=== PATIENT | female | born 1960 | race Caucasian/White ===

== ENCOUNTER 2021-04-29 01:50 | Emergency (ER) | payer BC ==
[~2021-04-29] VITALS: Ht 162.6 cm; Wt 98.0 kg
--- NOTE | 2021-04-29 03:58 | RAD ---
XR CHEST 1V INDICATION: Reason: epigastric pain / Spl. Instructions: / History: . COMPARISON STUDY: None. FINDINGS: Lungs: Normal lung volume. No pulmonary mass or consolidation. The tracheobronchial tree and hilar st ructures are normal. Pleura: No pleural effusion or pneumothorax. Heart and Mediastinum: The cardiomediastinal silhouette is normal. The great vessels of the thorax ar e normal. Bones and Soft Tissues: The bones and soft tissues are within normal limits. IMPRESSION: No acute cardiopulmonary process. Electronically signed by: Julio Huffman MD (04/29/2021 3:56 AM) [facility]
[2021-04-29 04:17] LABS: BASO # 0.1 x10^3/uL (0.0-0.2); BASO % 1 % (0-3); EOS # 0.3 x10^3/uL (0.0-0.7); EOS % 3 % (0-3); HEMOGLOBIN 14.3 g/dL (12.0-15.5); LYMPH # 2.8 x10^3/uL (1.0-4.8); LYMPH % 28 % (24-48); MEAN CORPUSCULAR HEMOGLOBIN 31 pg (25-35); MEAN CORPUSCULAR HGB CONC 34 g/dL (31-37); MEAN CORPUSCULAR VOLUME 92 fL (79-100); MONO # 1.6 x10^3/uL (0.0-1.1); MONO % 16 % (0-9); NEUT % 52 % (31-73); PLATELET COUNT 298 x10^3/uL (140-400); RED BLOOD COUNT 4.55 x10^6/uL (3.50-5.40); RED CELL DISTRIBUTION WIDTH 13.8 % (11.5-14.5); WHITE BLOOD COUNT 9.8 x10^3/uL (4.0-11.0)
[2021-04-29 04:31] LABS: CALCIUM 9.9 mg/dL (8.5-10.1); CREATININE 1.1 mg/dL (0.6-1.0); GFR 50.3
[2021-04-29 04:37] LABS: ALBUMIN 3.5 g/dL (3.4-5.0); ALBUMIN/GLOBULIN RATIO 0.9 (1.0-1.7); MAGNESIUM 2.3 mg/dL (1.8-2.4); TOTAL BILIRUBIN 0.3 mg/dL (0.2-1.0); TOTAL PROTEIN 7.6 g/dL (6.4-8.2)
[2021-04-29] MEDS ORDERED: CONTRAST GIVEN. MC PRN (05:00)
--- NOTE | 2021-04-29 05:03 | EKG ---
[facility] [address] [place] [address] Test Date: 2021-04-29 Test Time: 03:47:12 Pat Name: EVELIO WINCHESTER Department: Room: Gender: F Pheresis Nurse: : 1960 Requested By: GUADALUPE LYMAN Order Number: [id number] Reading MD: Measurements Intervals [place] Rate: 67 P: 28 UT: 130 QRS: -23 QRSD: 94 T: 0 QT: 396 QTc: 421 Interpretive Statements SINUS RHYTHM LEFTWARD AXIS QRS(T) CONTOUR ABNORMALITY CONSIDER ANTEROSEPTAL MYOCARDIAL DAMAGE POSSIBLY ABNORMAL ECG RI6.01 No previous ECG available for comparison
--- NOTE | 2021-04-29 05:23 | PHYS DOC ---
Past Medical History Additional Past Medical Histor: PSORISIS (GUADALUPE LYMAN DO) Past Surgical History: Tonsillectomy (GUADALUPE LYMAN DO) General Adult EDM: Chief Complaint: ABDOMINAL PAIN HPI: HPI: 61-year-old female past medical history of hyperlipidemia (no history of hypertension) presents to the ED with complaints of epigastric abdominal pain that woke her up out of her sleep around midnight earlier tonight described as a " constant, real dull pain," nonradiating, no improvement with movement. Not on any antihypertensive medications. Denies any recent alcohol, cocaine or methamphetamine abuse. (GUADALUPE LYMAN DO) Review of Systems: Review of Systems: Constitutional: Denies fever or chills. [] Eyes: Denies change in visual acuity. [] HENT: Denies nasal congestion or sore throat. [] Respiratory: Denies cough or shortness of breath. [] Cardiovascular: Denies chest pain or or hemoptysis GI: Denies nausea, vomiting, bloody stools or diarrhea. [] : Denies dysuria or hematuria Musculoskeletal: Denies back pain or joint pain. [] Integument: Denies rash or diaphoresis Neurologic: Denies headache, focal weakness or sensory changes. [] Endocrine: Denies polyuria or polydipsia. [] Lymphatic: Denies swollen glands. [] Psychiatric: Denies depression or anxiety. [] (GUADALUPE LYMAN DO) Heart Score: C/O Chest Pain: No HEART Score for Chest Pain: HEART Score for Chest Pain Response (Comments) Value History Slighlty/Non-Suspicious 0 ECG Normal 0 Age >45 - < 65 1 Risk Factors 1 or 2 Risk Factors 1 Troponin < Normal Limit 0 Total 2 Risk Factors: Risk Factors: DM, Current or recent (<one month) smoker, HTN, HLP, family history of CAD, obesity. Risk Scores: Score 0 - 3: 2.5% MACE over next 6 weeks - Discharge Home Score 4 - 6: 20.3% MACE over next 6 weeks - Admit for Clinical Observation Score 7 - 10: 72.7% MACE over next 6 weeks - Early Invasive Strategies (GUADALUPE LYMAN DO) Current Medications: Current Medications Medications (Trade) Dose Ordered Sig/Antwan Start Time Stop Time Status Last Admin Dose Admin Info (CONTRAST GIVEN -- Rx MONITORING) 1 each PRN DAILY PRN 7/18/21 05:00 05/01/21 04:59 Iohexol (Omnipaque 350 Mg/ml) 75 ml 1X ONCE 04/29/21 05:30 04/29/21 05:31 (GUADALUPE LYMAN DO) Allergies: Allergies: Allergies Coded Allergies Type Severity Reaction Last Updated Verified No Known Drug Allergies 04/29/21 No (GUADALUPE LYMAN DO) Physical Exam: PE: Constitutional: Well developed, well nourished, no acute distress, non-toxic appearance. HENT: Normocephalic, atraumatic, Eyes: EOMI, conjunctiva normal, no discharge. Neck: Normal range of motion, supple, Cardiovascular: S1/2 present, regular rhythm Lungs & Thorax: Speaking in full sentences, bilateral equal chest rise, no tachypnea or increased work of breathing Abdomen: soft, no tenderness, Skin: Warm, dry, no erythema, no rash. [] Back: No tenderness, no CVA tenderness. [] Extremities: No tenderness, no cyanosis, no lower extremity edema Neurologic: Alert and oriented X 3, normal motor function, normal sensory function, no focal deficits noted. [] Psychologic: Affect normal, judgement normal, mood normal. [] (GUADALUPE LYMAN DO) PE: Constitutional: Well developed, well nourished, no acute distress, non-toxic appearance HENT: Normocephalic, atraumatic Eyes: Conjunctiva normal, no discharge Neck: Normal range of motion, supple Lungs & Thorax: No respiratory distress, equal chest rise and fall Abdomen: Soft, no tenderness, no guarding/rebound tenderness/distention Skin: Warm, dry, no erythema, no rash Extremities: No tenderness, ROM intact, no edema Neurologic: Alert and oriented X 3, no focal deficits noted Psychologic: Affect normal, judgment normal (DAYAN CASTRO DO) Current Patient Data: Labs: Laboratory Tests Test 04/29/21 03:55 White Blood Count 9.8 x10^3/uL (4.0-11.0) Red Blood Count 4.55 x10^6/uL (3.50-5.40) Hemoglobin 14.3 g/dL (12.0-15.5) Hematocrit 42.0 % (36.0-47.0) Mean Corpuscular Volume 92 fL (79-100) Mean Corpuscular Hemoglobin 31 pg (25-35) Mean Corpuscular Hemoglobin Concent 34 g/dL (31-37) Red Cell Distribution Width 13.8 % (11.5-14.5) Platelet Count 298 x10^3/uL (140-400) Neutrophils (%) (Auto) 52 % (31-73) Lymphocytes (%) (Auto) 28 % (24-48) Monocytes (%) (Auto) 16 % (0-9) H Eosinophils (%) (Auto) 3 % (0-3) Basophils (%) (Auto) 1 % (0-3) Neutrophils # (Auto) 5.0 x10^3/uL (1.8-7.7) Lymphocytes # (Auto) 2.8 x10^3/uL (1.0-4.8) Monocytes # (Auto) 1.6 x10^3/uL (0.0-1.1) H Eosinophils # (Auto) 0.3 x10^3/uL (0.0-0.7) Basophils # (Auto) 0.1 x10^3/uL (0.0-0.2) Sodium Level 140 mmol/L (136-145) Potassium Level 5.0 mmol/L (3.5-5.1) Chloride Level 103 mmol/L (98-107) Carbon Dioxide Level 31 mmol/L (21-32) Anion Gap 6 (6-14) Blood Urea Nitrogen 19 mg/dL (7-20) Creatinine 1.1 mg/dL (0.6-1.0) H Estimated GFR (Cockcroft-Gault) 50.3 BUN/Creatinine Ratio 17 (6-20) Glucose Level 119 mg/dL (70-99) H Calcium Level 9.9 mg/dL (8.5-10.1) Magnesium Level 2.3 mg/dL (1.8-2.4) Total Bilirubin 0.3 mg/dL (0.2-1.0) Aspartate Amino Transferase (AST) 19 U/L (15-37) Alanine Aminotransferase (ALT) 32 U/L (14-59) Alkaline Phosphatase 62 U/L (46-116) Troponin I Quantitative < 0.017 ng/mL (0.000-0.055) AE-Fmf-[id number]-Type Natriuretic Peptide 81 pg/mL (0-124) Total Protein 7.6 g/dL (6.4-8.2) Albumin 3.5 g/dL (3.4-5.0) Albumin/Globulin Ratio 0.9 (1.0-1.7) L Lipase 91 U/L (73-393) Laboratory Tests 04/29/21 03:55 Laboratory Tests 04/29/21 03:55 Vital Signs: Vital Signs Date Time Temp Pulse Resp B/P (MAP) Pulse Ox O2 Delivery O2 Flow Rate FiO2 04/29/21 03:09 98.7 94 18 212/97 97 Room Air 98.7 (GUADALUPE LYMAN DO) EKG: EKG: Sinus rhythm 67 bpm, left axis deviation, normal intervals, T wave inversion lead III, no ST elevations or ST depressions (GUADALUPE LYMAN DO) Radiology/Procedures: Radiology/Procedures: []IMAGING REPORT Signed PATIENT: EVELIO WINCHESTRE ACCOUNT: [id number] : 1960 LOCATION: ER AGE: 61 SEX: F EXAM STATUS: PRE ER ORD. PHYSICIAN: GUADALUPE LYMAN DO REASON: epigastric pain PROCEDURE: PORTABLE CHEST 1V XR CHEST 1V INDICATION: Reason: epigastric pain / Spl. Instructions: / History: . COMPARISON STUDY: None. FINDINGS: Lungs: Normal lung volume. No pulmonary mass or consolidation. The tracheobronchial tree and hilar structures are normal. Pleura: No pleural effusion or pneumothorax. Heart and Mediastinum: The cardiomediastinal silhouette is normal. The great ves sels of the thorax are normal. Bones and Soft Tissues: The bones and soft tissues are within normal limits. IMPRESSION: No acute cardiopulmonary process. Electronically signed by: Kirk Huffman MD (04/29/2021 3:56 AM) [facility] DICTATED and SIGNED BY: KIRK HUFFMAN MD DATE: 04/29/21 [id number] IMAGING REPORT Signed PATIENT: EVELIO WINCHESTER ACCOUNT: [id number] : 1960 LOCATION: ER AGE: 61 SEX: F EXAM STATUS: PRE ER ORD. PHYSICIAN: GUADALUPE LYMAN DO REASON: cp, r/o dissection;OMNI 350, 75ML PROCEDURE: CT ANGIO CHEST ABD PELVIS CTA CHEST_ABDOMEN_AND PELVIS Clinical Indication: Chest pain COMPARISON: None TECHNIQUE: Multiple contiguous axial images were obtained throughout the chest, abdomen, and pelvis without and with the use of IV contrast. Axial images were reformatted into coronal and sagittal planes. MIP and 3-D reconstructions were obtained. 75 mL Omnipaque 350 was administered. One or more of the following dose reduction techniques were utilized: Automated exposure control (AEC), Adjustment of mA and/or kV according to patient size, Use of iterative reconstruction technique such as ASiR, CT scan done according to ALARA and image gently/image wisely. Findings: The thyroid is symmetric. There is no axillary, mediastinal, or hilar adenopathy. No aortic intramural hematoma, dissection, or aneurysm. The cardiac size is normal. There is no pericardial effusion. The central airways are patent. No pulmonary mass or consolidation. No pleural effusion is observed. There is no pneumothorax. The liver, spleen, pancreas, and adrenal glands are unremarkable. Cholelithiasis. No hydronephrosis or opaque urinary calculi There is no significant mesenteric or retroperitoneal adenopathy identified. There is no evidence of free intraperitoneal fluid or pneumoperitoneum. Visualized portions of the bowel are grossly unremarkable. Locule of fat along the sigmoid colon with hyperdense rim. Bladder is unremarkable. Uterus is present. There is no significant pelvic ascites. No significant iliac or inguinal adenopathy is identified. No acute osseous abnormality. IMPRESSION: 1. No aortic intramural hematoma, dissection, or aneurysm. 2. Small locule of fat along the sigmoid colon with hyperdense rim, which can be seen with epiploic appendagitis. 3. Cholelithiasis. Electronically signed by: Kirk Huffman MD (04/29/2021 5:37 AM) [facility] DICTATED and SIGNED BY: KIRK HUFFMAN MD DATE: 04/29/21 [id number] (GUADALUPE LYMAN DO) Course & Med Decision Making: Course & Med Decision Making Pertinent Labs and Imaging studies reviewed. (See chart for details) Concern for epigastric abdominal pain in the setting of uncontrolled CT chest abdomen pelvis did not show any evidence of aortic dissection. Patient is pending second troponin (sx onset at midnight, second trop to be drawn at 0622) to evaluate for atypical chest pain. Due to shift change patient was signed out to Dr. Castro for further medical evaluation disposition. (GUADALUPE LYMAN DO) Course & Med Decision Making [id number]-signout received from Dr. Lyman for further evaluation of patient with epigastric abdominal pain. Labs reviewed. EKG stable. Patient pending second troponin. CTA negative. Patient seen and evaluated myself. Repeat troponin resulted within normal limits and without change. Cannot exclude gastritis. Patient stable for discharge with outpatient follow-up with PCP/GI. Discussed findings and plan with patient and spouse, who acknowledge understanding and agreement. (DAYAN CASTRO DO) Dragon Disclaimer: Dragon Disclaimer: This electronic medical record was generated, in whole or in part, using a voice recognition dictation system. (GUADALUPE LYMAN DO) Departure Departure Impression: Primary Impression: Epigastric abdominal pain Disposition: HOME / SELF CARE / HOMELESS Condition: STABLE Referrals: LONG PORTILLO MD Patient Instructions: Abdominal Pain, [id number], Gastritis, Adult, [id number] Additional Instructions: Follow up with your family doctor and/or GI specialist. Scripts Famotidine (PEPCID) 20 Mg Tablet 20 MG PO BID, #30 TAB Prov: DAYAN CASTRO DO 04/29/21 GUADALUPE LYMAN DO Apr 29, 2021 05:22 DAYAN CASTRO DO Apr 29, 2021 07:04
[2021-04-29 05:28] LABS: BILIRUBIN,URINE NEGATIVE (NEG); CLARITY,URINE CLEAR; COLOR,URINE YELLOW; NITRITE,URINE NEGATIVE (NEG); PROTEIN,URINE NEGATIVE (NEG-TRACE); UROBILINOGEN,URINE 0.2 mg/dL (0.2 mg/dL)
[2021-04-29] MEDS ORDERED: IOHEXOL 350 MG/ML 100 ML VIAL. IV ONE (05:30)
[2021-04-29 05:35] LABS: BARBITURATES NEG (NEG); BENZODIAZEPINES NEG (NEG); CANNABINOIDS NEG (NEG); COCAINE NEG (NEG); METHADONE NEG (NEG); OPIATES NEG (NEG); PHENCYCLIDINE NEG (NEG)
[2021-04-29 05:37] LABS: AMPHETAMINE/METHAMPHETAMINE NEG (NEG)
--- NOTE | 2021-04-29 05:40 | RAD ---
CTA CHEST_ABDOMEN_AND PELVIS Clinical Indication: Chest pain COMPARISON: None TECHNIQUE: Multiple contiguous axial images were obtained throughout the chest, abdomen, and pelvis without and with the use of IV contrast. Axial images were reformatted into coronal and sagittal planes. MIP and 3-D reconstructions were obtained. 75 mL Omnipaque 350 was administered. One or more of the following dose reduction techniques were utilized: Automated exposure control (AEC), Adjustment of mA and/or k V according to patient size, Use of iterative reconstruction technique such as ASiR, CT scan done acc ording to ALARA and image gently/image wisely. Findings: The thyroid is symmetric. There is no axillary, mediastinal, or hilar adenopathy. No aortic intramural hematoma, dissection, or aneurysm. The cardiac size is normal. There is no belkis cardial effusion. The central airways are patent. No pulmonary mass or consolidation. No pleural effusion is observed. There is no pneumothorax. The liver, spleen, pancreas, and adrenal glands are unremarkable. Cholelithiasis. No hydronephrosis o r opaque urinary calculi There is no significant mesenteric or retroperitoneal adenopathy identified . There is no evidence of free intraperitoneal fluid or pneumoperitoneum. Visualized portions of th e bowel are grossly unremarkable. Locule of fat along the sigmoid colon with hyperdense rim. Bladder is unremarkable. Uterus is present. There is no significant pelvic ascites. No significant i liac or inguinal adenopathy is identified. No acute osseous abnormality. IMPRESSION: 1. No aortic intramural hematoma, dissection, or aneurysm. 2. Small locule of fat along the sigmoid colon with hyperdense rim, which can be seen with epiploic a ppendagitis. 3. Cholelithiasis. Electronically signed by: Julio Huffman MD (04/29/2021 5:37 AM) [facility]
[2021-04-29 05:43] LABS: BACTERIA,URINE 0 /HPF (0-FEW); RBC,URINE 0 /HPF (0-2); WBC,URINE 0 /HPF (0-4)
[2021-04-29] MEDS ORDERED: METOCLOPRAMIDE HCL 10 MG/2 ML VIAL. IVP ONE (06:00)
[2021-04-29] MEDS ORDERED: HYDROmorphone 2 MG/ML VIAL IVP ONE (06:00)
[2021-04-29] MEDS ORDERED: FAMOTIDINE 20 MG/2 ML VIAL IVP ONE (06:00)
[2021-04-29] MEDS ORDERED: FAMO-63 PO (07:03)
[2021-04-29 07:30] VITALS: BP 139/94
== END 2021-04-29 07:36 | disposition home or self-care (01) ==
LOC: ER 01:50
DX: R10.13 Epigastric pain (principal); I10 Essential (primary) hypertension; E78.5 Hyperlipidemia, unspecified
CPT/HCPCS: 36415; 71045; 71275; 74174; 80053; 80307; 81001; 83690; 83735; 83880; 84484; 85025; 93005; 96374; 96375; 99285; J1170; J2765; J3490; Q9967